=== PATIENT | male | born 1990 | race Caucasian/White ===

== ENCOUNTER 2020-07-01 03:46 | Emergency (ER) | payer SELFPAY ==
[~2020-07-01] VITALS: Ht 162.6 cm; Wt 68.2 kg
[2020-07-01 03:51] VITALS: BP 101/57
[2020-07-01] MEDS ORDERED: AMOXICILLIN 8751 TAB PO (04:27)
[2020-07-01 04:33] VITALS: PULSE 78
== END 2020-07-01 04:33 | disposition home or self-care (01) ==
LOC: COL.ER 03:46
DX: S61.251A Open bite of left index finger without damage to nail, initial encounter (principal); W55.01XA Bitten by cat, initial encounter

== ENCOUNTER 2020-10-11 14:59 | Emergency (ER) | payer OTHER ==
[~2020-10-11] VITALS: Ht 162.6 cm; Wt 68.2 kg
[~2020-10-11 14:59] MED LIST: AMOXICILLIN 8751 TAB PO
[2020-10-11 15:07] VITALS: TEMP 98.1
[2020-10-11 16:05] VITALS: BP 118/78; PULSE 73
== END 2020-10-11 16:08 | disposition home or self-care (01) ==
LOC: COL.ER 14:59
DX: S60.221A Contusion of right hand, initial encounter (principal); W21.07XA Struck by softball, initial encounter